=== PATIENT | female | born 1945 | race Caucasian/White ===

== ENCOUNTER 2022-04-20 09:50 | Day surgery (SDC) | payer MEDICARE, BC ==
[2022-04-20] MEDS ORDERED: Propofol 200 MG/20 ML SDV IV ONE (09:51)
[2022-04-20] MEDS ORDERED: Lidocaine 2% 100 MG/5 ML Syringe IVPUSH ONE (09:51)
[2022-04-20] MEDS ORDERED: Lactated Ringers 1,000 ML IV SCH (10:30)
[2022-04-20] MEDS ORDERED: Sodium Chloride 0.9% 10 ML Syringe FLUSH PRN (10:30)
== END 2022-04-20 12:00 | disposition home or self-care (01) ==
LOC: FB.SDS 09:50
PROVIDERS: ATTEND Surgery
DX: K31.89 Other diseases of stomach and duodenum (principal); K21.00 Gastro-esophageal reflux disease with esophagitis, without bleeding; K29.71 Gastritis, unspecified, with bleeding; K31.7 Polyp of stomach and duodenum; E66.9 Obesity, unspecified; E78.5 Hyperlipidemia, unspecified; E03.9 Hypothyroidism, unspecified; Z87.891 Personal history of nicotine dependence; Z79.899 Other long term (current) drug therapy; Z90.49 Acquired absence of other specified parts of digestive tract; Z98.890 Other specified postprocedural states; Z68.26 Body mass index [BMI] 26.0-26.9, adult
CPT/HCPCS: 00731; 43239; J2704; J7120; 88305

== ENCOUNTER 2022-06-29 08:01 | Day surgery (SDC) | payer MEDICARE, BC ==
[~2022-06-29 08:01] MED LIST: Lactated Ringers 1,000 ML IV SCH; Sodium Chloride 0.9% 10 ML Syringe FLUSH PRN
[2022-06-29] MEDS ORDERED: Labetalol 100 MG/20 ML MDV IV ONE (08:02)
[2022-06-29] MEDS ORDERED: Propofol 200 MG/20 ML SDV IV ONE (08:02)
== END 2022-06-29 11:08 | disposition home or self-care (01) ==
LOC: FB.SDS 08:01
PROVIDERS: ATTEND Surgery
DX: Z12.11 Encounter for screening for malignant neoplasm of colon (principal); D12.6 Benign neoplasm of colon, unspecified; K57.30 Diverticulosis of large intestine without perforation or abscess without bleeding; E78.00 Pure hypercholesterolemia, unspecified; M81.0 Age-related osteoporosis without current pathological fracture; M19.90 Unspecified osteoarthritis, unspecified site; E03.9 Hypothyroidism, unspecified; R32 Unspecified urinary incontinence; J30.9 Allergic rhinitis, unspecified; Z79.82 Long term (current) use of aspirin; Z79.890 Hormone replacement therapy; Z79.899 Other long term (current) drug therapy; Z98.890 Other specified postprocedural states; Z90.49 Acquired absence of other specified parts of digestive tract
CPT/HCPCS: 00812-QZ; 88305; J2704; J3490; J7120

== ENCOUNTER 2022-07-20 20:13 | Emergency (ER) | payer MEDICARE, BC | END 2022-07-20 21:25 | disposition home or self-care (01) | LOC: FB.ED 20:13 | DX: S01.01XA Laceration without foreign body of scalp, initial encounter (principal); E78.00 Pure hypercholesterolemia, unspecified; Z79.82 Long term (current) use of aspirin; Z79.899 Other long term (current) drug therapy; Z90.49 Acquired absence of other specified parts of digestive tract; W01.10XA Fall on same level from slipping, tripping and stumbling with subsequent striking against unspecified object, initial encounter | CPT/HCPCS: 12002; 70450; 99283 ==

== ENCOUNTER 2023-06-26 10:09 | Emergency (ER) | payer MEDICARE, BC | END 2023-06-26 12:41 | disposition home or self-care (01) | LOC: FB.ED 10:09 | DX: S09.93XA Unspecified injury of face, initial encounter (principal); S01.119A Laceration without foreign body of unspecified eyelid and periocular area, initial encounter; Z79.82 Long term (current) use of aspirin; Z87.891 Personal history of nicotine dependence; W19.XXXA Unspecified fall, initial encounter | CPT/HCPCS: 12011; 99283 ==